=== PATIENT | male | born 1965 | race Caucasian/White ===

== ENCOUNTER 2022-08-29 13:04 | Emergency (ER) | payer OTHER ==
[2022-08-29] VITALS (9 sets, daily range): BP systolic 121–147; BP diastolic 79–92
[2022-08-29] MEDS ORDERED: MELOXICAM7.5 MG PO (13:14)
[2022-08-29] MEDS ORDERED: LEVOTHYROXIN125 MCG PO (13:16)
[2022-08-29] MEDS ORDERED: DULOXETINE HCL20 MG PO (13:17)
[2022-08-29] MEDS ORDERED: ACETAMINOP160 MG/5 M PO (13:18)
[2022-08-29 13:31] LABS: BASO% 0.5 % (0-3); EOS% 1.3 % (0-8); HEMATOCRIT 42.5 % (39.0-50.0); HEMOGLOBIN 13.3 g/dl (14.0-18.0); IMMATURE GRANULOCYTES 0.2 % (0.0-5.0); LYMPH% 28.4 % (15-41); MEAN CELL VOLUME 95.1 fL CALC (80.0-100.0); MEAN CORPUSCULAR HGB 29.8 pG CALC (26.0-32.0); MEAN CORPUSCULAR HGB CONC 31.3 g/dL CAL (32.0-36.0); MONO% 9.6 % (2-13); NEUT# 3.32 thou/uL (1.82-7.42); RED BLOOD COUNT 4.47 mill/uL (4.70-6.10)
[2022-08-29 13:41] LABS: ALBUMIN 4.1 g/dL (3.2-5.0); ALKALINE PHOSPHATASE 71 u/l (38-126); ANION GAP 11 (6-22 (CALC)); BILIRUBIN, TOTAL 0.3 mg/dL (0.2-1.3); BUN 19 mg/dL (9-20); BUN/CREATININE RATIO 24 (12-20 (CALC)); CARBON DIOXIDE 27 mmol/l (22-30); CHLORIDE 104 mmol/l (95-108); CREATININE 0.8 mg/dL (0.7-1.3); GFR FOR AFR.AMER. > 60 ML/MIN (>=60 (CALC)); GFR OTHER RACES > 60 ML/MIN (>=60 (CALC)); POTASSIUM 4.9 mmol/l (3.5-5.1); SGOT/AST 45 u/l (17-59); SODIUM 137 mmol/l (137-146); TOTAL PROTEIN 6.5 g/dL (6.3-8.2)
[2022-08-29] MEDS ORDERED: OMNI-PAC300 MG PO (16:30)
== END 2022-08-29 16:50 | disposition home or self-care (01) | DRG 999 ==
LOC: ED 13:04
PROVIDERS: Family Medicine
PROC: 0HQ1XZZ Repair Face Skin, External Approach (ICD-10-PCS; principal; 2022-08-29)
DX: S01.81XA Laceration without foreign body of other part of head, initial encounter (principal); S02.651A Fracture of angle of right mandible, initial encounter for closed fracture; S06.0X1A Concussion with loss of consciousness of 30 minutes or less, initial encounter; Y04.0XXA Assault by unarmed brawl or fight, initial encounter; Y92.149 Unspecified place in prison as the place of occurrence of the external cause